=== PATIENT | female | born 1990 ===

== ENCOUNTER 2017-11-26 18:56 | Emergency (ER) | payer SELFPAY ==
[2017-11-26 19:03] VITALS: RESP 18; TEMP 97.7
[2017-11-26] MEDS ORDERED: Sodium Chloride 0.9% 1,000 ML IV ONE (19:20)
--- NOTE | 2017-11-26 19:20 | C.PDOC ---
History Of Present Illness 27 year old female presents to the ED c/o abdominal pain and vaginal bleeding that started today at 09:00. Patient reports her pain has been worsening since morning, she also noticed at first some brown vaginal discharge but now its only blood. Patient did 3 test at home which are positive but has not gone to her see PMD. Patient reports this is her second . Patient denies fever, chills, nausea, vomit, diarrhea, back pain, dysuria. Time Seen by Provider: 11/26/17 19:19 Chief Complaint (Nursing): Female Genitourinary History Per: Patient History/Exam Limitations: no limitations Onset/Duration Of Symptoms: Hrs Current Symptoms Are (Timing): Still Present Pain Scale Rating Of: 4 Quality Of Discomfort: "Pain" Associated Symptoms: Urinary Symptoms Alleviating Factors: None Recent travel outside of the [place]: No Additional History Per: Patient Abnormal Vaginal Bleeding: Yes Past Medical History Reviewed: Historical Data, Nursing Documentation, Vital Signs Vital Signs: Last Vital Signs Temp 97.7 F 11/26/17 18:59 Pulse 80 11/26/17 23:06 Resp 18 11/26/17 23:06 BP 106/68 11/26/17 23:06 Pulse Ox 100 11/26/17 23:06 - Medical History PMH: No Chronic Diseases Surgical History: No Surg Hx - [facility] Procedures MONITORING NOS (10/01/14) LOW CERVICAL (10/01/14) VACUUM EXTRACT DEL NEC (10/01/14) Family History: States: Unknown Family Hx - Social History Hx Tobacco Use: No Hx Alcohol Use: No Hx Substance Use: No - Immunization History Hx Tetanus Toxoid Vaccination: Yes Hx Influenza Vaccination: Yes Hx Pneumococcal Vaccination: No Review Of Systems Constitutional: Negative for: Fever, Chills Cardiovascular: Negative for: Chest Pain Respiratory: Negative for: Shortness of Breath Gastrointestinal: Positive for: Abdominal Pain. Negative for: Nausea, Vomiting , Diarrhea Genitourinary: Positive for: Vaginal Bleeding. Negative for: Dysuria, Vaginal Discharge Musculoskeletal: Negative for: Back Pain Skin: Negative for: Rash Physical Exam - Physical Exam Appears: Non-toxic, No Acute Distress Skin: Warm, Dry Head: Normacephalic Eye(s): bilateral: Normal Inspection Nose: No Discharge Oral Mucosa: Moist Neck: Supple Chest: Symmetrical Cardiovascular: Rhythm Regular, No Murmur Respiratory: Normal Breath Sounds, No Rales, No Rhonchi, No Wheezing Gastrointestinal/Abdominal: Soft, No Tenderness, No Guarding, No Rebound Extremity: Bilateral: Normal Color And Temperature, Normal ROM Neurological/Psych: Oriented x3, Normal Motor, Normal Sensation Gait: Steady ED Course And Treatment - Laboratory Results Result Diagrams: 11/26/17 19:47 11/26/17 19:47 O2 Sat by Pulse Oximetry: 94 (On RA) Pulse Ox Interpretation: Normal Progress Note: Plan: - Labs. - IV fluids. - UA Disposition Counseled Patient/Family Regarding: Studies Performed, Diagnosis, Need For Followup - Disposition Referrals: [facility] [Outside] [facility] [Outside] Disposition: HOME/ ROUTINE Disposition Time: 19:19 Condition: FAIR Additional Instructions: Please return if symptoms recur. Will need repeat blood work and US in 5-7 days Instructions: Threatened Miscarriage (DC), Bleeding With (DC) Forms: [employer] (Japanese) Print Language: KAZAKH - Clinical Impression Clinical Impression: Threatened , Vaginal bleeding in patient at less than 20 weeks gestation - Scribe Statement The provider has reviewed the documentation as recorded by the Scribe Shai Vazquez All medical record entries made by the Scribe were at my direction and personally dictated by me. I have reviewed the chart and agree that the record accurately reflects my personal performance of the history, physical exam, medical decision making, and the department course for this patient. I have also personally directed, reviewed, and agree with the discharge instructions and disposition.
[2017-11-26 19:51] LABS: BASO # 0.1 K/uL (0.0-0.2); BASO % 0.9 % (0.0-2.0); EOS # 0.9 K/uL (0.0-0.7); EOS % 7.9 % (0.0-4.0); HEMOGLOBIN 12.7 g/dL (11.0-16.0); LYMPH # 2.6 K/uL (1.0-4.3); LYMPH % 23.3 % (20.0-40.0); MEAN CELL VOLUME 90.1 fL (81.0-99.0); MEAN CORPUSCULAR HEMOGLOBIN 30.5 pg (27.0-31.0); MEAN CORPUSCULAR HGB CONC 33.8 g/dL (33.0-37.0); MEAN PLATELET VOLUME 9.2 fL (7.2-11.7); MONO # 0.6 K/uL (0.0-0.8); MONO % 5.2 % (0.0-10.0); NEUT # 6.9 K/uL (1.8-7.0); NEUT % 62.7 % (50.0-75.0); RBC 4.17 Mil/uL (3.80-5.20); RED CELL DISTRIBUTION WIDTH 13.4 % (11.5-14.5)
[2017-11-26 20:01] LABS: PROTHROMBIN TIME 11.9 SECONDS (9.7-12.2); SQUAMOUS EPITHIAL 3 /hpf (0-5); URINE BILIRUBIN NEGATIVE (NEGATIVE); URINE BLOOD 3+ (NEGATIVE); URINE CLARITY Hazy (Clear); URINE COLOR Straw (YELLOW); URINE GLUCOSE (UA) NORMAL (Normal); URINE LEUKOCYTE ESTERASE NEG Leu/uL (Negative); URINE PROTEIN NEGATIVE (NEGATIVE); URINE UROBILINOGEN NORMAL mg/dL (0.2-1.0)
[2017-11-26 20:05] LABS: ALB/GLOB RATIO 1.3 (1.0-2.1); ALBUMIN 4.4 g/dL (3.5-5.0); ALT/SGPT 20 U/L (9-52); AST/SGOT 23 U/L (14-36); BLOOD UREA NITROGEN 13 mg/dL (7-17); CALCIUM 8.8 mg/dl (8.6-10.4); GFR AFRICAN-AMERICAN > 60; GFR NON-AFRICAN AMERICAN > 60
[2017-11-26] MEDS ORDERED: Sodium Chloride 0.9% 1,000 ML ONE (20:27)
--- NOTE | 2017-11-26 23:06 | US ---
EXAM: US First Trimester, Transabdominal US , Transvaginal CLINICAL HISTORY: 27 years old, female; Pain; Abdominal pain; Other: Not specified; Additional info: Abd pain, vag bleed hcg 680 TECHNIQUE: Real-time transabdominal and transvaginal obstetrical ultrasound of the maternal pelvis and a first trimester with image documentation. Transvaginal imaging was used for better evaluation of the fetus and adnexa. COMPARISON: No relevant prior studies available. FINDINGS: Gestation: No intrauterine gestational sac. Uterus/cervix: Endometrium: 1.0 cm in thickness. Closed cervix. Probable nabothian cysts. Ovaries: Normal ovaries. No adnexal masses. Free fluid: Trace free fluid within pelvis. IMPRESSION: 1. No intrauterine gestation. DDX: Early IUP, missed , ectopic . 2. Incidental/non-acute findings are described above.
[2017-11-26 23:07] VITALS: BP 106/68; PULSE 80
[2017-11-26 23:10] VITALS: O2SAT 94
== END 2017-11-26 23:18 | disposition home or self-care (01) ==
LOC: C.ER 18:56
DX: O20.0 Threatened abortion (principal); O46.90 Antepartum hemorrhage, unspecified, unspecified trimester
CPT/HCPCS: 76830; 76856; 80053; 81001; 84702; 85025; 85610; 85730; 86850; 86900; 99284; J7040

== ENCOUNTER 2017-12-02 14:00 | Emergency (ER) | payer OTHER ==
[2017-12-02 15:09] LABS: BASO # 0.1 K/uL (0.0-0.2); BASO % 0.8 % (0.0-2.0); EOS # 1.6 K/uL (0.0-0.7); EOS % 15.8 % (0.0-4.0); HEMOGLOBIN 13.5 g/dL (11.0-16.0); LYMPH # 2.3 K/uL (1.0-4.3); LYMPH % 23.2 % (20.0-40.0); MEAN CELL VOLUME 90.8 fL (81.0-99.0); MEAN CORPUSCULAR HEMOGLOBIN 31.1 pg (27.0-31.0); MEAN CORPUSCULAR HGB CONC 34.3 g/dL (33.0-37.0); MONO # 0.5 K/uL (0.0-0.8); MONO % 4.7 % (0.0-10.0); NEUT # 5.5 K/uL (1.8-7.0); NEUT % 55.5 % (50.0-75.0); RBC 4.35 Mil/uL (3.80-5.20); RED CELL DISTRIBUTION WIDTH 13.2 % (11.5-14.5); WHITE BLOOD COUNT 9.9 K/uL (4.8-10.8)
[2017-12-02 15:23] LABS: ALB/GLOB RATIO 1.3 (1.0-2.1); ALBUMIN 4.3 g/dL (3.5-5.0); ALT/SGPT 16 U/L (9-52); AST/SGOT 18 U/L (14-36); BLOOD UREA NITROGEN 16 mg/dL (7-17); CALCIUM 9.4 mg/dl (8.6-10.4); GFR AFRICAN-AMERICAN > 60; GFR NON-AFRICAN AMERICAN > 60
--- NOTE | 2017-12-02 17:01 | C.PDOC ---
History Of Present Illness 27yo female, A1, presents to ED for evaluation of persistent vaginal bleeding for the past couple days. Patient states she took a home test 2 weeks ago and found she was positive. She was evaluated in this ER 6 days ago and had labs, US done but she does not have the reports with her. Patient states she was informed by her provider that she was . She presents today because she still has vaginal bleeding and she took a home test which was negative. She denies any abdominal pain, weakness, and offers no other medical complaints. Time Seen by Provider: 12/02/17 14:33 Chief Complaint (Nursing): Female Genitourinary History Per: Patient History/Exam Limitations: no limitations Onset/Duration Of Symptoms: Persistent Current Symptoms Are (Timing): Still Present Quality Of Discomfort: denies: "Pain" Abnormal Vaginal Bleeding: Yes : 3 Para: 1 Miscarriage: 1 Past Medical History Reviewed: Historical Data, Nursing Documentation, Vital Signs Vital Signs: Last Vital Signs Temp 98.7 F 12/02/17 14:20 Pulse 67 12/02/17 14:20 Resp 20 12/02/17 14:20 BP 106/68 12/02/17 14:20 Pulse Ox 99 12/02/17 17:04 - Medical History PMH: No Chronic Diseases Surgical History: No Surg Hx - [facility] Procedures MONITORING NOS (10/01/14) LOW CERVICAL (10/01/14) VACUUM EXTRACT DEL NEC (10/01/14) Family History: States: Unknown Family Hx - Social History Hx Tobacco Use: No Hx Alcohol Use: No Hx Substance Use: No - Immunization History Hx Tetanus Toxoid Vaccination: Yes Hx Influenza Vaccination: Yes Hx Pneumococcal Vaccination: No Review Of Systems Except As Marked, All Systems Reviewed And Found Negative. Constitutional: Negative for: Weakness Gastrointestinal: Negative for: Abdominal Pain Genitourinary: Positive for: Vaginal Bleeding. Negative for: Pelvic Pain Physical Exam - Physical Exam Appears: Non-toxic, No Acute Distress Skin: Normal Color, Warm, Dry Head: Atraumatic, Normacephalic Eye(s): bilateral: Normal Inspection, PERRL Neck: Normal ROM, Supple Chest: Symmetrical Cardiovascular: Rhythm Regular Respiratory: Normal Breath Sounds Gastrointestinal/Abdominal: Normal Exam, Soft, No Tenderness Extremity: Normal ROM, No Deformity Neurological/Psych: Oriented x3 ED Course And Treatment - Laboratory Results Result Diagrams: 12/02/17 15:05 12/02/17 15:05 O2 Sat by Pulse Oximetry: 99 (RA) Pulse Ox Interpretation: Normal - CT Scan/US Pelvic US Other Rad Studies (CT/US): Read By Radiologist, Radiology Report Reviewed CT/US Interpretation: Accession No. : [id number]. Patient Name / ID : OUMAR ERNST / [id number]. Exam Date : 12/02/2017 16:39:04 ( Approved ). Study Comment : Sex / Age : F / 27Y. Creator : Joanne Aguilar. Dictator : Machine Assembler : Practicing Dermatologist : John Crandall MD. Approver2 : Report Date : 17:05:36. My Comment : . PROCEDURE: Pelvic ultrasound dated 12/02. HISTORY: Vaginal bleeding, , follow up US. COMPARISON: Comparison made with prior study dated 11/26/2017. TECHNIQUE: Transabdominal/ transvaginal sonographic evaluation of the pelvis performed. FINDINGS: The uterus is anteverted measuring approximately 7.6 x 3.9 x 4.8 cm. Endometrial stripe measures approximately 6.1 mm. . No evidence of intrauterine gestation. Note however that correlation the possibility of an ectopic cannot be excluded therefore go follow-up serum beta HCG and serial ultrasound recommended. Cervix measures approximately 2.8 cm. Small cervical nabothian cyst present. No gross free fluid seen in the cul sac. Right ovary measures approximately 3.1 x 2.9 x 3.1 cm. Multiple follicular cysts. Right ovary exhibits arterial flow. Left ovary measures approximately 3.5 x 1.9 x 3.75 cm and also exhibits arterial flow. There are multiple small follicular cysts present. Correlation with beta HCG recommended. IMPRESSION: The uterus is anteverted measuring approximately 7.6 x 3.9 x 4.8 cm. Endometrial stripe measures approximately 6.1 mm. . No evidence of intrauterine gestation. Note however that correlation the possibility of an ectopic cannot be excluded therefore go follow-up serum beta HCG and serial ultrasound recommended. Progress Note: Labs including Beta-HCG ordered. Labs reviewed, patient had Beta -HCG in 400's during her prior visit, and today the levels are 8. Patient informed her presentation is likely due to a miscarriage. She was instructed to come back to ED one more time in 1 week to repeat Beta and pelvic US. Disposition - Disposition Disposition: HOME/ ROUTINE Disposition Time: 18:21 Condition: STABLE Additional Instructions: Follow up with OBGYn within 2-3 days. Return to ED in 1 week to repeat Beta HCG and pelvic US. Return to ED immediately if feel worse. Instructions: Miscarriage (DC) Forms: [employer] (Bolivian) Print Language: MALTESE - Clinical Impression Clinical Impression: Spontaneous - PA / CUSTOM BOW MAKER / Resident Statement MD/DO has reviewed & agrees with the documentation as recorded. - Scribe Statement The provider has reviewed the documentation as recorded by the Scribe (Josette Meyer) Provider Attestation: All medical record entries made by the Scribe were at my direction and personally dictated by me. I have reviewed the chart and agree that the record accurately reflects my personal performance of the history, physical exam, medical decision making, and the department course for this patient. I have also personally directed, reviewed, and agree with the discharge instructions and disposition.
--- NOTE | 2017-12-02 17:41 | US ---
PROCEDURE: Pelvic ultrasound dated 12/02/2017. HISTORY: Vaginal bleeding, , follow up US COMPARISON: Comparison made with prior study dated 11/26/2017. TECHNIQUE: Transabdominal/transvaginal sonographic evaluation of the pelvis performed. FINDINGS: The uterus is anteverted measuring approximately 7.6 x 3.9 x 4.8 cm. Endometrial stripe measures approximately 6.1 mm. . No evidence of intrauterine gestation. Note however that correlation the possibility of an ectopic cannot be excluded therefore go follow-up serum beta HCG and serial ultrasound recommended. Cervix measures approximately 2.8 cm. Small cervical nabothian cyst present. No gross free fluid seen in the cul sac. Right ovary measures approximately 3.1 x 2.9 x 3.1 cm. Multiple follicular cysts. Right ovary exhibits arterial flow. Left ovary measures approximately 3.5 x 1.9 x 3.75 cm and also exhibits arterial flow. There are multiple small follicular cysts present. Correlation with beta HCG recommended IMPRESSION: The uterus is anteverted measuring approximately 7.6 x 3.9 x 4.8 cm. Endometrial stripe measures approximately 6.1 mm. . No evidence of intrauterine gestation. Note however that correlation the possibility of an ectopic cannot be excluded therefore go follow-up serum beta HCG and serial ultrasound recommended.
[2017-12-02 18:21] VITALS: BP 99/63; PULSE 69; RESP 16; TEMP 98.4
[2017-12-02 18:23] VITALS: O2SAT 99
== END 2017-12-02 19:20 | disposition home or self-care (01) ==
LOC: C.ER 14:00
DX: O03.9 Complete or unspecified spontaneous abortion without complication (principal)

== ENCOUNTER 2018-08-04 19:47 | Emergency (ER) | payer OTHER ==
[2018-08-04 19:58] VITALS: BP 106/68; PULSE 74; RESP 18; TEMP 98.1; O2SAT 98
--- NOTE | 2018-08-04 20:14 | C.PDOC ---
History Of Present Illness Patient reports discomfort to L ear for 3 days, thinks there is an "animal" inside her ear, has put drops of water and alcohol in her ear to try to flush the foreign body out, with no relief. No other symptoms. Patient is 4 months with no abdominal/vaginal symptoms. Time Seen by Provider: 08/04/18 20:01 Chief Complaint (Nursing): ENT Problem Past Medical History Reviewed: Historical Data, Nursing Documentation, Vital Signs Vital Signs: Last Vital Signs Temp 98.1 F 08/04/18 19:53 Pulse 74 08/04/18 19:53 Resp 18 08/04/18 19:53 BP 106/68 08/04/18 19:53 Pulse Ox 98 08/04/18 19:53 - Medical History PMH: No Chronic Diseases - [facility] Procedures MONITORING NOS (10/01/14) LOW CERVICAL (10/01/14) VACUUM EXTRACT DEL NEC (10/01/14) Family History: States: Unknown Family Hx - Social History Hx Tobacco Use: No Hx Alcohol Use: No Hx Substance Use: No - Immunization History Hx Tetanus Toxoid Vaccination: Yes Hx Influenza Vaccination: Yes Hx Pneumococcal Vaccination: No Review Of Systems Except As Marked, All Systems Reviewed And Found Negative. Constitutional: Negative for: Fever ENT: Positive for: Ear Pain. Negative for: Ear Discharge Cardiovascular: Negative for: Chest Pain Respiratory: Negative for: Cough, Shortness of Breath Gastrointestinal: Negative for: Nausea, Vomiting Physical Exam - Physical Exam Appears: Well, Non-toxic, No Acute Distress Skin: Normal Color, Warm Ear(s): Left: Other (solid mass of cerumen noted), Right: Normal Neurological/Psych: Oriented x3 Gait: Steady ED Course And Treatment O2 Sat by Pulse Oximetry: 98 Medical Decision Making Medical Decision Making: Mass of cerumen noted in L ear canal, Rx written for Debrox to help soften the wax. Disposition - Disposition Disposition: HOME/ ROUTINE Disposition Time: 20:15 Condition: STABLE Additional Instructions: SUJATA OSEGUERA, thank you for letting us take care of you today. Your provider was Erica Leonard MD and you were treated for LEFT EAR PAIN/FB. The emergency medical care you received today was directed at your acute symptoms. If you were prescribed any medication, please fill it and take as directed. It may take several days for your symptoms to resolve. Return to the Emergency Department if your symptoms worsen, do not improve, or if you have any other problems. Please contact your doctor or call one of the physicians/clinics you have been referred to that are listed on the Patient Visit Information form that is included in your discharge packet. Bring any paperwork you were given at discharge with you along with any medications you are taking to your follow up visit. Our treatment cannot replace ongoing medical care by a primary care provider outside of the emergency department. Thank you for allowing the [facility] team to be part of your care today. If you had an X-Ray or CT scan: A Radiologist will review the ED reading if any change in treatment is needed we will contact you. If you had a blood, urine, or wound culture: It will take several days for the results, if any change in treatment is needed we will contact you. If you had an STI test: It will take 48 hours for the results. Please call after 1 week if you have not heard back. Prescriptions: Carbamide Peroxide [Debrox 15 Ml] 5 drop OT BID #1 bottle Instructions: Ear Wax Impaction (DC) Forms: [employer] (Ghanaian) Print Language: CHILEAN - Clinical Impression Clinical Impression: Impacted cerumen of left ear
== END 2018-08-04 20:22 | disposition home or self-care (01) ==
LOC: C.ER 19:47
DX: H61.22 Impacted cerumen, left ear (principal)

== ENCOUNTER 2018-08-25 08:51 | Emergency (ER) | payer SELFPAY, OTHER | END 2018-08-25 11:51 | disposition home or self-care (01) | LOC: C.ER 08:51 ==